=== PATIENT | male | born 1995 | race Caucasian/White ===

== ENCOUNTER 2016-10-20 19:36 | Emergency (ER) | payer BC ==
[~2016-10-20] VITALS: Ht 188 cm; Wt 72.5 kg
[2016-10-20] MEDS ORDERED: NORCO 5/3251 TABLET PO (23:12)
[2016-10-20 23:35] VITALS: BP 133/61
== END 2016-10-20 23:36 | disposition home or self-care (01) ==
LOC: EDBD 19:36 → EME 19:36 → TRA 19:36
PROC: 0CQ0XZZ Repair Upper Lip, External Approach (ICD-10-PCS; principal; 2016-10-20)
DX: S01.511A Laceration without foreign body of lip, initial encounter (principal); S00.81XA Abrasion of other part of head, initial encounter; V18.0XXA Pedal cycle driver injured in noncollision transport accident in nontraffic accident, initial encounter; Y93.55 Activity, bike riding
CPT/HCPCS: 70450; 70486; 72125; 99281; 99284